=== PATIENT | male | born 1955 | race Caucasian/White ===

== ENCOUNTER 2017-06-13 05:24 | Inpatient (IN) | payer OTHER ==
[2017-06-10 12:12] LABS: BASOPHILS % (AUTO) 0.5 % (0-1); EOSINOPHILS # (AUTO) 0.2 X10'3 (0-0.9); EOSINOPHILS % (AUTO) 3.1 % (0-6); LYMPHOCYTES # (AUTO) 1.8 X10'3 (1.1-4.8); LYMPHOCYTES % (AUTO) 27.2 % (21-51); MEAN CORPUSCULAR HEMOGLOBIN 30.4 PG (27.0-31.0); MEAN CORPUSCULAR HGB CONC 34.9 % (33.0-36.5); MEAN CORPUSCULAR VOLUME 87.2 FL (78-98); MEAN PLATELET VOLUME 8.3 FL (7.4-10.4); MONOCYTES # (AUTO) 0.7 X10'3 (0-0.9); MONOCYTES % (AUTO) 10.4 % (2-12); NEUTROPHILS # (AUTO) 3.9 X10'3 (1.8-7.7); NEUTROPHILS % (AUTO) 58.8 % (42-75); PRE OP HEMATOCRIT 45.3 % (42.0-52.0); PRE OP HEMOGLOBIN 15.8 g/dL (14.0-17.9); PRE OP PLATELET COUNT 224 X10'3 (140-440); RED CELL DISTRIBUTION WIDTH 14.1 % (11.5-14.5)
[2017-06-10 12:26] LABS: ALBUMIN 3.9 G/DL (3.4-5.0); ALBUMIN/GLOBULIN RATIO 1.1 (1.1-1.5); ALKALINE PHOSPHATASE 81 IU/L (46-116); BLOOD UREA NITROGEN 10 MG/DL (7-18); BUN/CREATININE RATIO 10.1 (5.4-32.0); CALCIUM 9.3 MG/DL (8.5-10.1); CHLORIDE 99 MMOL/L (99-107); CREATININE 0.99 MG/DL (0.60-1.10); PRE OP ALT 36 U/L (30-65); PRE OP ANION GAP 10 (8-16); PRE OP AST 33 U/L (10-37); PRE OP BILIRUB, TOTAL 0.5 MG/DL (0.0-1.0); PRE OP POTASSIUM 4.2 MMOL/L (3.4-5.1); PRE OP SODIUM 137 MMOL/L (135-145); TOTAL CARBON DIOXIDE 28.1 MMOL/L (24-32); TOTAL PROTEIN 7.5 G/DL (6.4-8.2); eGFR 77 ML/MIN
[2017-06-10 12:27] LABS: PRE OP GLUCOSE 204 MG/DL (70-104)
[2017-06-13] VITALS (16 sets, daily range): BP systolic 101–145; BP diastolic 60–87
[~2017-06-13] VITALS: Ht 182.9 cm; Wt 108.5 kg
[~2017-06-13 05:24] MED LIST: AMLO-94 PO; ATOR10TA87 PO; GLYB2.5T4 PO; HYDR50TA3 PO; MELO-100 PO; METF500T PO; OMEP-50 PO; ringers solution, lacted 1,000 ML IV SCH
[2017-06-13] MEDS ORDERED: VANCOMYCIN INJ 1000 MG in NORMAL SALINE 250ml IV.SOLN IV ONE (05:30)
[2017-06-13] MEDS ORDERED: cefazolin/dext.iso 2gm/50ml 50 ML IV ONE (05:30)
[2017-06-13] MEDS ORDERED: famotidine 20mg tablet PO ONE (05:30)
[2017-06-13] MEDS ORDERED: tranexamic acid inj. 1,000 MG in normal saline 100ml IV soln 90 ML IV ONE ×2 (05:30→06:00)
[2017-06-13] MEDS ORDERED: LIDOcaine 1% (10mg/ml) 2ml vial ONE (05:46)
[2017-06-13] MEDS ORDERED: ketorolac trometh. 30mg/ml inj. ONE (06:52)
[2017-06-13] MEDS ORDERED: vancomycin 1,000mg inj ONE (06:52)
[2017-06-13] MEDS ORDERED: ROPIVAcaine 0.5% (5mg/ml) 30ml vial ONE ×2 (06:53→07:53)
[2017-06-13] MEDS ORDERED: cloNIDine hcl/PF 100mcg/ml inj ONE (07:53)
[2017-06-13] MEDS ORDERED: fentaNYL/PF 50MCG/1 ML 2ML syringe ONE (07:56)
[2017-06-13] MEDS ORDERED: sevoflurane 250ml liquid IH ONE (07:57)
[2017-06-13] MEDS ORDERED: propofol inj 20 ML IV ONE (07:57)
[2017-06-13] MEDS ORDERED: MIDAZolam 5mg/5ml vial ONE (07:57)
[2017-06-13] MEDS ORDERED: glycopyrrolate 0.2mg/ml inj ONE (07:57)
[2017-06-13] MEDS ORDERED: ondansetron/PF 4mg/2ml inj IV PRN ×2 (09:50→10:20)
[2017-06-13] MEDS ORDERED: ringers solution, lacted 1,000 ML IV SCH (09:50)
[2017-06-13] MEDS ORDERED: meperidine/PF 50mg/ml syringe IV PRN ×3 (09:50)
[2017-06-13] MEDS ORDERED: proCHLORperazine 10 MG/2 ml inj IV PRN (09:50)
[2017-06-13] MEDS ORDERED: morphine 2 MG/ML inj. syringe IV PRN ×2 (09:50)
[2017-06-13] MEDS ORDERED: rocuronium 10mg/ml inj IV ONE (10:08)
[2017-06-13] MEDS ORDERED: neostigmine methylsulfate 1 MG/ML 10ml vial ONE (10:12)
[2017-06-13] MEDS ORDERED: acetaminophen 325mg tablet PO PRN (10:20)
[2017-06-13] MEDS ORDERED: oxyCODONE IR 5mg (immed. release) tablet PO PRN (10:20)
[2017-06-13] MEDS ORDERED: magnesium hydroxide 30ml (MOM) UD suspension PO PRN (10:20)
[2017-06-13] MEDS ORDERED: HYDROmorphone inj. 0.5 MG/0.5 ML DISP.SYRIN IV PRN ×2 (10:20)
[2017-06-13] MEDS ORDERED: diphenhydrAMINE 25mg capsule PO PRN ×2 (10:20)
[2017-06-13] MEDS ORDERED: bisacodyl 10mg suppository rectal RC PRN (10:20)
[2017-06-13] MEDS ORDERED: tranexamic acid inj. 1,000 MG in normal saline 100ml IV soln 100 ML IV ONE (13:38)
[2017-06-13] MEDS: ketorolac tromethamine 15mg/ml inj. IV SCH ×2 (14:23→19:09)
[2017-06-13] MEDS: acetaminophen 325mg tablet PO SCH ×2 (14:24→19:09)
[2017-06-13] MEDS: gabapentin 300mg capsule PO SCH ×2 (14:24→20:55)
[2017-06-13] MEDS: potassium cl 20mEq in 1/2 NS 1,000 ML IV SCH ×2 (14:27→18:20)
[2017-06-13] MEDS: cefazolin 1gm/NS 100mL 100 ML IV SCH ×2 (15:36→23:43)
[2017-06-13] MEDS: metFORMIN 500mg tablet PO SCH (19:09)
[2017-06-13] MEDS ORDERED: celeCOXIB 100mg capsule PO SCH (20:00)
[2017-06-13] MEDS ORDERED: vancomycin/NS 1 GM ADD-VANTAGE 250 ML IV SCH (20:00)
[2017-06-13] MEDS ORDERED: sennosides 8.6mg tablet PO SCH (21:00)
[2017-06-14] MEDS: acetaminophen 325mg tablet PO SCH ×2 (01:28→07:31)
[2017-06-14] MEDS: ketorolac tromethamine 15mg/ml inj. IV SCH ×3 (01:29→14:04)
[2017-06-14 02:00] VITALS: BP 138/86
[2017-06-14] MEDS: potassium cl 20mEq in 1/2 NS 1,000 ML IV SCH (02:20)
[2017-06-14 06:00] VITALS: BP 126/79
[2017-06-14 06:28] LABS: BASOPHILS % (AUTO) 0.2 % (0-1); EOSINOPHILS # (AUTO) 0.2 X10'3 (0-0.9); EOSINOPHILS % (AUTO) 1.6 % (0-6); HEMATOCRIT 37.1 % (42.0-52.0); LYMPHOCYTES # (AUTO) 1.8 X10'3 (1.1-4.8); LYMPHOCYTES % (AUTO) 15.9 % (21-51); MEAN CORPUSCULAR HEMOGLOBIN 30.6 PG (27.0-31.0); MEAN CORPUSCULAR HGB CONC 35.1 % (33.0-36.5); MEAN CORPUSCULAR VOLUME 87.2 FL (78-98); MEAN PLATELET VOLUME 7.8 FL (7.4-10.4); MONOCYTES # (AUTO) 0.8 X10'3 (0-0.9); MONOCYTES % (AUTO) 7.4 % (2-12); NEUTROPHILS # (AUTO) 8.5 X10'3 (1.8-7.7); NEUTROPHILS % (AUTO) 74.9 % (42-75); PLATELET COUNT 187 X10'3 (140-440); RED BLOOD COUNT 4.25 X10'6 (4.70-6.10); RED CELL DISTRIBUTION WIDTH 14.3 % (11.5-14.5); WHITE BLOOD COUNT 11.4 X10'3 (4.5-11.0)
[2017-06-14 06:42] LABS: ANION GAP 8 (8-16); CHLORIDE 101 MMOL/L (99-107); POTASSIUM 4.1 MMOL/L (3.5-5.1); SODIUM 136 MMOL/L (135-145); TOTAL CARBON DIOXIDE 26.7 MMOL/L (24-32)
[2017-06-14] MEDS: metFORMIN 500mg tablet PO SCH (07:16)
[2017-06-14] MEDS: gabapentin 300mg capsule PO SCH ×2 (07:16→14:03)
[2017-06-14] MEDS ORDERED: pantoprazole 40mg Tablet.DR PO SCH (07:30)
[2017-06-14] MEDS ORDERED: glimepiride 1 MG tablet PO SCH (08:00)
[2017-06-14] MEDS ORDERED: amLODIPine 5mg tablet PO SCH (08:00)
[2017-06-14] MEDS ORDERED: atorvastatin 10mg tablet PO SCH (08:00)
[2017-06-14] MEDS ORDERED: HYDROchlorothiazide 25mg tablet PO SCH (08:00)
[2017-06-14] MEDS ORDERED: lisinopril 20mg tablet PO SCH (08:00)
[2017-06-14] MEDS ORDERED: non-formulary drug (Meloxicam* 2 TAB) PO SCH (08:00)
[2017-06-14] MEDS ORDERED: aspirin 325mg tablet PO SCH (08:30)
[2017-06-14] MEDS: oxyCODONE IR 5mg (immed. release) tablet PO PRN ×2 (09:52→14:04)
[2017-06-14 10:00] VITALS: BP 127/69
[2017-06-14] MEDS ORDERED: ASPI-1 PO (12:33)
[2017-06-15] MEDS ORDERED: celeCOXIB 100mg capsule PO SCH (08:00)
[2017-06-15] MEDS ORDERED: acetaminophen 325mg tablet PO PRN (10:20)
== END 2017-06-14 14:34 | disposition home or self-care (01) | DRG 483 ==
LOC: PAS IN 05:24 → EDSTATUS 08:00 → ORTHO 4S 10:20
PROVIDERS: ADMIT Orthopaedic Surgery; ATTEND Orthopaedic Surgery
PROC: 0LS40ZZ Reposition Left Upper Arm Tendon, Open Approach (ICD-10-PCS; 2017-06-13)
PROC: 3E0T3BZ Introduction of Anesthetic Agent into Peripheral Nerves and Plexi, Percutaneous Approach (ICD-10-PCS; 2017-06-13)
PROC: 0RRK00Z Replacement of Left Shoulder Joint with Reverse Ball and Socket Synthetic Substitute, Open Approach (ICD-10-PCS; principal; 2017-06-13 07:57)
DX: M19.112 Post-traumatic osteoarthritis, left shoulder (principal); D62 Acute posthemorrhagic anemia; E11.9 Type 2 diabetes mellitus without complications; E78.5 Hyperlipidemia, unspecified; I10 Essential (primary) hypertension; K21.9 Gastro-esophageal reflux disease without esophagitis; M54.12 Radiculopathy, cervical region; M75.122 Complete rotator cuff tear or rupture of left shoulder, not specified as traumatic; M75.22 Bicipital tendinitis, left shoulder; Z90.49 Acquired absence of other specified parts of digestive tract; Z79.82 Long term (current) use of aspirin; Z79.84 Long term (current) use of oral hypoglycemic drugs; Z79.899 Other long term (current) drug therapy; Z79.4 Long term (current) use of insulin; Z87.891 Personal history of nicotine dependence
CPT/HCPCS: 36415; 80051; 80053; 82948; 83036; 85025; 85610; 85730; 86885; 86900; 86901; 87070; 97116; 97162; 97530; A4565; A7000; J0690; J0735; J1885; J2250; J2704; J2710; J2795; J3010; J3370; J3490; J7030; J7120

== ENCOUNTER → 2018-07-01 | Day surgery (SDC) | payer BC ==
[2018-06-29 10:59] LABS: BASOPHILS # (AUTO) 0.1 X10'3 (0-0.2); BASOPHILS % (AUTO) 0.9 % (0-1); EOSINOPHILS # (AUTO) 0.3 X10'3 (0-0.9); EOSINOPHILS % (AUTO) 3.4 % (0-6); LYMPHOCYTES # (AUTO) 1.7 X10'3 (1.1-4.8); LYMPHOCYTES % (AUTO) 22.7 % (21-51); MEAN CORPUSCULAR HEMOGLOBIN 29.9 PG (27.0-31.0); MEAN CORPUSCULAR VOLUME 88.2 FL (78-98); MEAN PLATELET VOLUME 8.4 FL (7.4-10.4); MONOCYTES # (AUTO) 0.8 X10'3 (0-0.9); MONOCYTES % (AUTO) 10.3 % (2-12); NEUTROPHILS # (AUTO) 4.7 X10'3 (1.8-7.7); NEUTROPHILS % (AUTO) 62.7 % (42-75); PRE OP HEMATOCRIT 46.3 % (42.0-52.0); PRE OP HEMOGLOBIN 15.7 g/dL (14.0-17.9); PRE OP PLATELET COUNT 246 X10'3 (140-440); RED BLOOD COUNT 5.25 X10'6 (4.70-6.10); RED CELL DISTRIBUTION WIDTH 14.5 % (11.5-14.5)
[2018-06-29 11:00] LABS: CLARITY,URINE CLEAR (Clear); COLOR,URINE YELLOW (Yellow); GLUCOSE, URINE >=1000 mg/dl (Neg); KETONES,URINE NEGATIVE (Neg); LEUKOCYTE ESTERASE ,URINE NEGATIVE (Neg); NITRITES, URINE NEGATIVE (Neg); OCCULT BLOOD,URINE NEGATIVE (Neg); PH,URINE 5.5 (4.8-8.0); PROTEIN,URINE NEGATIVE (Neg); UROBILINOGEN,URINE 0.2 E.U/dL (0.2-1.0)
[2018-06-29 11:05] LABS: UA COLLECTION TYPE CLN CATCH MIDSTREAM
[2018-06-29 11:15] LABS: ALBUMIN/GLOBULIN RATIO 1.2 (1.1-1.5); ALKALINE PHOSPHATASE 82 IU/L (46-116); BLOOD UREA NITROGEN 16 MG/DL (7-18); BUN/CREATININE RATIO 14.8 (5.4-32.0); CALCIUM 9.4 MG/DL (8.5-10.1); CHLORIDE 98 MMOL/L (99-107); CREATININE 1.08 MG/DL (0.60-1.10); PRE OP ALT 42 U/L (30-65); PRE OP ANION GAP 9 (8-16); PRE OP AST 33 U/L (10-37); PRE OP BILIRUB, TOTAL 0.6 MG/DL (0.0-1.0); PRE OP POTASSIUM 4.3 MMOL/L (3.4-5.1); PRE OP SODIUM 135 MMOL/L (135-145); TOTAL CARBON DIOXIDE 28.4 MMOL/L (24-32); TOTAL PROTEIN 7.4 G/DL (6.4-8.2); eGFR 69 ML/MIN
[2018-06-29 11:17] LABS: PRE OP PROTIME 10.2 SECONDS (9.0-12.0)
[2018-06-29 11:19] LABS: HYALINE CASTS 0-3 /LPF (NEGATIVE); MUCUS STRANDS MODERATE /LPF (Neg); SQUAMOUS EPITHELIAL CELL,UR MODERATE /LPF (FEW); TRANSITIONAL EPI CELLS,URINE FEW /HPF
[2018-06-29 11:19] LABS: PRE OP GLUCOSE 214 MG/DL (70-104)
[2018-06-29 11:20] LABS: BACTERIA,URINE FEW /HPF (Neg); RBC,URINE NONE SEEN /HPF (0-2); WBC,URINE 0-4 /HPF (0-4)
[2018-07-01] VITALS (14 sets, daily range): BP systolic 119–142; BP diastolic 55–83
[~2018-07-01] VITALS: Ht 182.9 cm; Wt 105.8 kg
[~2018-07-01] MED LIST changes: -ATOR10TA87 PO; +BUPIVAcaine/PF 2.5mg/ml (0.25%) 10ml vial ONE; +HYDROcodone/acetaminophen 10/325mg tab PO STA; +LIDOcaine 1% (10mg/ml) 2ml vial ONE; +acetaminophen 1000 MG/100ml vial IV ONE; +ceFAZolin 2gm in dextrose, iso 100 ML IV ONE; +famotidine 20mg tablet PO ONE; +fentaNYL/PF 50MCG/1 ML 2ML syringe ONE; +ketorolac trometh. 30mg/ml inj. ONE; +meperidine/PF 25mg/ml syringe IV PRN; +midazolam 2 mg/2 ml injection ONE; +morphine 4 MG/ML inj SYRINge IV PRN; +ondansetron/PF 4mg/2ml inj IV PRN; +ondansetron/PF 4mg/2ml inj ONE; +proCHLORperazine 10 MG/2 ml inj IV PRN; +propofol inj 20 ML IV ONE; +rocuronium 10mg/ml inj IV ONE; +sevoflurane 250ml liquid IH ONE; +sugammadex 200mg/2ml injection IV ONE
--- NOTE | 2018-07-01 09:24 | NUR ---
Received from OR via [facility] , accompanied by Anesthesiologist GALLO and report given by Anesthesiolgist. PATIENT WITH 20G PIV IN RIGHT UE RUNNING LR AT 100- MEDICATED FOR PAIN UPON ARRIVAL. 2 ABDOMINAL BANDAIDS PRESENT. NO DRAINAGE. URINAL GIVEN AT THE PATIENTS REQUEST. PATIENT WITH VSS AT THIS TIME Addendum: 07/01/18 at 0937 by Monroe aFy RN, RN Amended: Links added.
[2018-07-01] MEDS: meperidine/PF 25mg/ml syringe IV PRN ×2 (09:32→11:00)
[2018-07-01] MEDS: morphine 4 MG/ML inj SYRINge IV PRN ×2 (09:46→10:07)
--- NOTE | 2018-07-01 10:00 | NUR ---
BG OF 177 Addendum: 07/01/18 at 1000 by Monroe White - AMADO RN Amended: Links added.
--- NOTE | 2018-07-01 11:10 | NUR ---
ARRIVED IN ROOM 245 FROM PACU. VS STABLE. AT BEDSIDE. PAIN 4-5/10, PT ACCEPTED OFFER FOR PAIN MEDS. GIVEN WATER AND COFFEE TO DRINK
--- NOTE | 2018-07-01 11:14 | NUR ---
Report called to receiving nurse. Transferred via [facility]UR[facility] WITH ONE BAG OF Belongings . Special Issues communicated to receiving nurse BRITTA [email or web address].VSS. AWAITNG PATIENT TO VOID PRIOR TO DC HOME. PATIENT WITH AND PAIN IS AT A TOLERABLE LEVEL AT THIS TIME. Addendum: 07/01/18 at 1118 by Monroe Fay RN, RN Amended: Links added.
--- NOTE | 2018-07-01 12:00 | NUR ---
UP AMBULATED TO BR, VOIDED APPROX 1/2CUP URINE WITHOUT DIFFICULTY
--- NOTE | 2018-07-01 12:45 | NUR ---
DISCHARGED VIA W/C, WITHOUT INCIDENT, ASSISTED BY NURSE. PT STEADY ON FEET
== END | disposition home or self-care (01) ==
LOC: PAS 05:25
PROVIDERS: ATTEND Surgery
DX: K40.91 Unilateral inguinal hernia, without obstruction or gangrene, recurrent (principal); I10 Essential (primary) hypertension; E11.9 Type 2 diabetes mellitus without complications; J43.9 Emphysema, unspecified; Z79.899 Other long term (current) drug therapy; Z98.890 Other specified postprocedural states; Z90.49 Acquired absence of other specified parts of digestive tract; Z80.9 Family history of malignant neoplasm, unspecified; F17.210 Nicotine dependence, cigarettes, uncomplicated; Z72.89 Other problems related to lifestyle; Z79.84 Long term (current) use of oral hypoglycemic drugs
CPT/HCPCS: 36415; 49520; 80053; 81001; 82948; 85025; 85610; 85730; 93005; A6258; C1781; C9399; J0131; J0690; J1885; J2175; J2250; J2270; J2405; J2704; J3010; J3490; A4315; C1713; J7120

== ENCOUNTER 2020-05-01 08:32 | Outpatient (CLI) | payer OTHER ==
[~2020-05-01 08:32] MED LIST changes: -BUPIVAcaine/PF 2.5mg/ml (0.25%) 10ml vial ONE; -HYDR50TA3 PO; +HYDR50TA4 PO; -HYDROcodone/acetaminophen 10/325mg tab PO STA; -LIDOcaine 1% (10mg/ml) 2ml vial ONE; -acetaminophen 1000 MG/100ml vial IV ONE; -ceFAZolin 2gm in dextrose, iso 100 ML IV ONE; -famotidine 20mg tablet PO ONE; -fentaNYL/PF 50MCG/1 ML 2ML syringe ONE; -ketorolac trometh. 30mg/ml inj. ONE; -meperidine/PF 25mg/ml syringe IV PRN; -midazolam 2 mg/2 ml injection ONE; -morphine 4 MG/ML inj SYRINge IV PRN; -ondansetron/PF 4mg/2ml inj IV PRN; -ondansetron/PF 4mg/2ml inj ONE; -proCHLORperazine 10 MG/2 ml inj IV PRN; -propofol inj 20 ML IV ONE; -ringers solution, lacted 1,000 ML IV SCH; -rocuronium 10mg/ml inj IV ONE; -sevoflurane 250ml liquid IH ONE; -sugammadex 200mg/2ml injection IV ONE
== END 2020-05-01 23:59 | disposition home or self-care (01) ==
LOC: RAD 08:32
DX: M50.10 Cervical disc disorder with radiculopathy, unspecified cervical region (principal)
CPT/HCPCS: 72141